=== PATIENT | female | born 1965 | race Caucasian/White ===

== ENCOUNTER 2016-10-21 20:53 | Emergency (ER) | payer OTHER ==
[2016-10-21 20:58] VITALS: RESP 16; TEMP 98.1
--- NOTE | 2016-10-21 21:29 | ED PDOC ---
- ECG O2 Sat by Pulse Oximetry: 100
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
[2016-10-21 22:20] LABS: BASO # 0.1 K/uL (0.0-0.2); BASO % 0.9 % (0.0-2.0); EOS % 0.8 % (0.0-4.0); HEMATOCRIT 40.1 % (34.0-47.0); LYMPH # 2.3 K/uL (1.0-4.3); LYMPH % 37.7 % (20.0-40.0); MEAN CELL VOLUME 85.2 fl (81.0-99.0); MEAN CORPUSCULAR HEMOGLOBIN 28.4 pg (27.0-31.0); MEAN CORPUSCULAR HGB CONC 33.4 g/dL (33.0-37.0); MONO # 0.5 K/uL (0.0-0.8); MONO % 7.9 % (0.0-10.0); NEUT # 3.2 K/uL (1.8-7.0); NEUT % 52.7 % (50.0-75.0); NRBC % 0.1 % (0.0-0.0); RED CELL DISTRIBUTION WIDTH 13.4 % (11.5-14.5); WHITE BLOOD COUNT 6.1 K/uL (4.8-10.8)
[2016-10-21 22:24] LABS: BLOOD UREA NITROGEN 11 mg/dl (7-17); CALCIUM 9.4 mg/dL (8.4-10.2); CARBON DIOXIDE 22 mmol/L (22-30); CHLORIDE 107 mmol/L (98-107); GFR AFRICAN-AMERICAN > 60; GLUCOSE,RANDOM 108 mg/dL (65-105); POTASSIUM 3.7 MMOL/L (3.6-5.0); SODIUM 144 mmol/l (132-148)
[2016-10-22 00:24] VITALS: BP 118/76; PULSE 72; O2SAT 98
--- NOTE | 2016-10-22 10:43 | RAD ---
PROCEDURE: CHEST RADIOGRAPH, 1 VIEW HISTORY: cp COMPARISON: None available. FINDINGS: LUNGS: Clear. PLEURA: No pneumothorax or pleural fluid seen. CARDIOVASCULAR: Normal. OSSEOUS STRUCTURES: No significant abnormalities. VISUALIZED UPPER ABDOMEN: Normal. OTHER FINDINGS: None. IMPRESSION: No active disease.
== END 2016-10-22 00:24 | disposition home or self-care (01) ==
LOC: H.ER 20:53
DX: F41.9 Anxiety disorder, unspecified (principal); R07.9 Chest pain, unspecified; R06.02 Shortness of breath

== ENCOUNTER 2018-11-18 15:20 | Emergency (ER) | payer SELFPAY ==
[2018-11-18 15:20] VITALS: BMI 25.7
[2018-11-18 16:09] VITALS: RESP 16; O2SAT 98
--- NOTE | 2018-11-18 18:12 | ED PDOC ---
Lower Extremity Pain/Injury Time Seen by Provider: 11/18/18 16:13 Chief Complaint (Nursing): Lower Extremity Problem/Injury Chief Complaint (Provider): Lower Extremity Problem/Injury History Per: Patient History/Exam Limitations: no limitations Onset/Duration Of Symptoms: Persistent Current Symptoms Are (Timing): Still Present Additional Complaint(s): 53 year old female with no significant medical history presents to the ED with hip, knee and ankle pain. Patient states knee pain began a year ago and has since progressed to bilateral hip pain and ankle pain over the last few weeks. She reports that pain radiates down her legs and is worse when she tries to stand after a prolonged period of sitting. Patient came in today mostly for evaluation of persistent left ankle swelling for the last three days. Swelling is not improved with elevation. Patient took Advil, last dose yesterday, with improvement, but pain returns. Of note, patient with adverse reaction to aspirin in the past, listed as anaphylaxis, but takes Advil without reaction. Denies prolonged immobilization, recent surgery, DVT, PE, hormone replacement therapy, cancer, fever, chills, numbness and tingling in feet. PMD: none provided Past Medical History Reviewed: Historical Data, Nursing Documentation, Vital Signs Vital Signs: Last Vital Signs Temp 98.2 F 11/18/18 16:03 Pulse 74 11/18/18 16:03 Resp 16 11/18/18 16:03 BP 116/72 11/18/18 16:03 Pulse Ox 98 11/18/18 16:03 Primary Care Provider: Procedure,Nonphys - Medical History PMH: No Chronic Diseases Denies: Diabetes, Hepatitis, HIV, HTN, Seizures, Sexually Transmitted Disease - Surgical History Surgical History: No Surg Hx - Family History Family History: States: Unknown Family Hx - Home Medications Home Medications: Ambulatory Orders Medication Instructions Recorded Ibuprofen [Motrin Tab] 600 mg PO Q6 PRN 7 Days tab 11/18/18 - Allergies Allergies/Adverse Reactions: Allergies Allergy/AdvReac Type Severity Reaction Status Date / Time aspirin Allergy ANAPHYLAXIS Verified 11/18/18 16:02 Review of Systems ROS Statement: Except As Marked, All Systems Reviewed And Found Negative Musculoskeletal: Positive for: Leg Pain (hips, knees and ankles bilaterally) Physical Exam - Reviewed Nursing Documentation Reviewed: Yes Vital Signs Reviewed: Yes - Physical Exam Appears: Positive for: No Acute Distress Head Exam: Positive for: ATRAUMATIC Skin: Positive for: Normal Color, Warm, Dry Eye Exam: Positive for: EOMI, Normal appearance, PERRL Pulses-Dorsalis Pedis (L): 2+ Pulses-Dorsalis Pedis (R): 2+ Extremity: Positive for: Normal ROM (normal ROM with flexion and extension of bilateral hips and knees; normal flexion and extension of bilateral ankles and toes), Pedal Edema (2+ non-pitting edema in left ankle; 1+ non-pitting edema in right ankle), Capillary Refill (< 2 seconds), Other (sensation intact to light touch of bilateral lower extremities). Negative for: Swelling (ecchymosis, erythema or swelling in bilateral hips or knees) Neurological/Psych: Positive for: Awake, Alert, Normal Tone, Oriented (x 3). Negative for: Motor/Sensory Deficits - ECG O2 Sat by Pulse Oximetry: 98 (RA) Pulse Ox Interpretation: Normal Medical Decision Making Medical Decision Makin:11 MDM: Bilateral LE venous Duplex Motrin 600 PO x 1 19:20 US FINDINGS: DEEP VEINS: The common femoral, superficial femoral, and popliteal veins are echolucent and compressible. There is normal color Doppler flow throughout. The visualized calf veins appear patent. SUPERFICIAL VEINS: The visualized greater saphenous vein is patent. SOFT TISSUES: No popliteal fossa cyst or other abnormalities. IMPRESSION: No deep venous thrombosis evident on bilateral lower extremity examination. 19:44 On re-evaluation, pain is improved. Advised patient to take Motrin or Tylenol as needed for likely arthritis. Patient is stable for discharge. Return instructions given. Scribe Attestation: Documented by Tawnya Vega, acting as a scribe for Anabel Velázquez PA-C Provider Scribe Attestation: All medical record entries made by the Scribe were at my direction and personally dictated by me. I have reviewed the chart and agree that the record accurately reflects my personal performance of the history, physical exam, medical decision making, and the department course for this patient. I have also personally directed, reviewed, and agree with the discharge instructions and disposition. Disposition - Clinical Impression Clinical Impression: Arthritis - Patient ED Disposition Is Patient to be Admitted: No - Disposition Referrals: [facility] [Outside] Disposition: Routine/Home Disposition Time: 19:45 Condition: IMPROVED Additional Instructions: Follow up with your primary care doctor within the next few weeks for re- evaluation. Return to ER if you develop worsening pain despite taking pain medications. Take Ibuprofen or Tylenol for pain as needed. Prescriptions: Ibuprofen [Motrin Tab] 600 mg PO Q6 PRN 7 Days tab PRN Reason: Pain, Moderate (4-7) Instructions: Osteoarthritis (DC), Muscle and Bone Pain (DC), Arthritis and Exercise Forms: [facility] ([place]ese) Print Language: CHINESE
[2018-11-18 19:59] VITALS: BP 124/68; PULSE 78; TEMP 98
--- NOTE | 2018-11-19 10:48 | US ---
Date of service: 11/18/2018 PROCEDURE: Bilateral lower extremity venous duplex Doppler. HISTORY: Left ankle swelling x 3 days COMPARISON: None available. TECHNIQUE: Bilateral common femoral, superficial femoral, popliteal and posterior tibial veins were evaluated. Flow was assessed with color Doppler, compressibility, assessment of phasic flow and augmentation response. FINDINGS: COMMON FEMORAL VEIN: Right CFV: Unremarkable. Left CFV: Unremarkable. SUPERFICIAL FEMORAL VEIN: Right SFV: Unremarkable. Left SFV: Unremarkable. POPLITEAL VEIN: Right Popliteal: Unremarkable. Left Popliteal: Unremarkable. POSTERIOR TIBIAL VEIN: Right PTV: Unremarkable. Left PTV: Unremarkable. OTHER FINDINGS: None. IMPRESSION: No evidence of deep venous thrombosis. A preliminary report was provided by [facility].
== END 2018-11-18 20:11 | disposition home or self-care (01) ==
LOC: H.ER 15:20
DX: M19.90 Unspecified osteoarthritis, unspecified site (principal)